=== PATIENT | female | born 2000 | race Hispanic/Latino ===

== ENCOUNTER 2024-04-06 13:14 | Inpatient (IN) | payer OTHER, SELFPAY ==
[2024-04-06 15:12] LABS: #Basophils 0.03 10x3/uL (0.0-0.2); #Eosinophils 0.18 10x3/uL (0.0-0.5); #Monocytes 0.71 10x3/uL (0.0-1.1); #Neutrophils 7.85 10x3/uL (1.5-8.4); %Basophils 0.2 % (0.0-2.0); %Eosinophils 1.5 % (0.0-6.0); %Lymphocytes 27.5 % (18.0-47.0); %Monocytes 5.8 % (0.0-10.0); %Neutrophils 64.8 % (40.0-75.0); Hematocrit 36.1 % (34.9-44.5); Hemoglobin 12.3 g/dL (12.0-15.5); Mean Corpuscular HGB CONC 34.1 g/dL (32.0-36.0); Mean Corpuscular Hemoglobin 28.1 pg (27.0-33.0); Mean Corpuscular Volume 82.4 fL (81.6-98.3); Mean Platelet Volume 10.8 fL (7.4-10.4); Platelet Count 218 10x3/uL (150-450); RBC Distribution Width 11.9 % (11.5-14.5); Red Blood Cell (RBC) Count 4.38 10x6/uL (3.90-5.03); White Blood Cell (WBC) Count 12.1 10x3/uL (3.5-10.5)
[2024-04-06 15:31] LABS: ALT (SGPT) 56 U/L (8-55); AST (SGOT) 37 U/L (5-34); Albumin 3.4 g/dL (3.5-5.0); Alkaline Phosphatase 86 U/L (40-110); Anion Gap 14 mmol/L (10-20); BUN (Urea Nitrogen) 11 mg/dL (7.0-18.7); Bilirubin, Total 0.4 mg/dL (0.2-1.2); Calc. Creatinine Clearance 0 mL/min (70-130); Calcium 9.1 mg/dL (7.8-10.44); Carbon Dioxide 26 mmol/L (22-29); Chloride 101 mmol/L (98-107); Estimated GFR 126; Globulin 3.9 g/dL (2.4-3.5); Glucose 316 mg/dL (70-105); Lipase 12 U/L (8-78); Potassium 3.5 mmol/L (3.5-5.1); Protein, Total 7.3 g/dL (6.0-8.3); Sodium 137 mmol/L (136-145)
[2024-04-06 18:14] LABS: Bilirubin Neg (Negative); Blood, Urine 250 (Negative); Clarity Clear (Clear); Glucose, Urine (Dipstick) >=1000 mg/dL (Negative); Ketone, Urine Negative (Negative); Leukocyte Negative (Negative); Nitrite Negative (Negative); Protein, Urine (Dipstick) Negative (Neg-Trace); Specific Gravity, Urine 1.015 (1.005-1.030); pH, Urine 6.5 (5.0-9.0)
[2024-04-06 18:32] LABS: Bacteria/HPF Rare-Few HPF (None Seen); CAUTI Indications for Culture Pelvic or flank pain; Mucous/LPF Rare LPF (<2+); Squamous Epithelial None Seen HPF (0-3); WBC/HPF 0-3 HPF (0-3)
[2024-04-06] MEDS ORDERED: Piperacillin/Tazobactam 4.5 GM VIAL ONE (18:32)
[2024-04-06 18:33] LABS: Urine Culture Reflex No No
[2024-04-06] MEDS ORDERED: Ibuprofen 200 MG TAB PO PRN (19:58)
[2024-04-06] MEDS ORDERED: Dextrose 5% in Water 1,000 ML IV PRN (20:06)
[2024-04-06] MEDS ORDERED: Dextrose 50% Abboject 50 ML SYRINGE SLOW IVP PRN (20:06)
[2024-04-06] MEDS ORDERED: Glucagon 1 MG/ML KIT IM PRN (20:06)
[2024-04-06] MEDS ORDERED: Piperacillin/Tazobactam 3.375 GM in Sodium Chloride 0.9% 100 ML IVPB SCH (22:00)
[2024-04-06] MEDS: Piperacillin/Tazobactam 3.375 GM in Sodium Chloride 0.9% 100 ML IVPB SCH (22:39)
[2024-04-06] MEDS: Insulin Lispro 100 UNIT/ML 10 ML VIAL SC PRN (23:02)
[2024-04-06] MEDS: Acetaminophen 325 MG TAB PO PRN (23:15)
[2024-04-07 02:13] VITALS: BMI 26.0
[2024-04-07 05:09] LABS: #Basophils 0.03 10x3/uL (0.0-0.2); #Eosinophils 0.18 10x3/uL (0.0-0.5); #Monocytes 0.68 10x3/uL (0.0-1.1); #Neutrophils 6.14 10x3/uL (1.5-8.4); %Basophils 0.3 % (0.0-2.0); %Eosinophils 1.7 % (0.0-6.0); %Lymphocytes 33.4 % (18.0-47.0); %Monocytes 6.4 % (0.0-10.0); %Neutrophils 57.9 % (40.0-75.0); Hematocrit 36.4 % (34.9-44.5); Hemoglobin 11.9 g/dL (12.0-15.5); Mean Corpuscular HGB CONC 32.7 g/dL (32.0-36.0); Mean Corpuscular Hemoglobin 27.3 pg (27.0-33.0); Mean Corpuscular Volume 83.5 fL (81.6-98.3); Mean Platelet Volume 11.2 fL (7.4-10.4); Platelet Count 196 10x3/uL (150-450); RBC Distribution Width 11.9 % (11.5-14.5); Red Blood Cell (RBC) Count 4.36 10x6/uL (3.90-5.03); White Blood Cell (WBC) Count 10.6 10x3/uL (3.5-10.5)
[2024-04-07] MEDS: Lactated Ringer's 1,000 ML IV SCH (08:15)
[2024-04-07] MEDS: FLU (Fluarix Triv) TS24-25(6MOS UP)/PF 45 MCG/0.5 ML Syringe IM ONE (08:15)
[2024-04-07] MEDS: Insulin Lispro 100 UNIT/ML 10 ML VIAL SC PRN (10:59)
[2024-04-07] MEDS ORDERED: Methylergonovine 0.2 MG/ML VIAL ONE (14:51)
[2024-04-07] MEDS ORDERED: Tranexamic Acid 1,000 MG/10 ML VIAL ONE (14:51)
[2024-04-07] MEDS ORDERED: PROPOFOL 20 ML ONE (14:52)
[2024-04-07] MEDS ORDERED: fentaNYL 50 mcg/mL 1 mL Vial ONE ×2 (14:52→15:10)
[2024-04-07] MEDS ORDERED: Ondansetron PF 4 MG/2 ML Vial ONE (15:15)
[2024-04-07] MEDS ORDERED: Dexamethasone 4 mg/ml Vial ONE (15:15)
[2024-04-07] MEDS ORDERED: PHENYLEPHRINE-NS 100 MCG/ML 10 ML SYRINGE ONE (15:23)
[2024-04-07] MEDS ORDERED: Misoprostol 200 MCG TAB ONE (15:25)
[2024-04-07] MEDS ORDERED: Meperidine HCl/PF 25 MG (1 mL) VIAL ONE (15:50)
[2024-04-07] MEDS: Ondansetron ODT 4 MG TAB PO PRN (18:03)
[2024-04-07] MEDS ORDERED: Ondansetron PF 4 MG/2 ML Vial IVP PRN (18:32)
[2024-04-07] MEDS: Lactated Ringer's 500 ML IV SCH (19:05)
[2024-04-07 20:15] VITALS: BP 113/70; TEMP 98.3
[2024-04-07] MEDS: Doxycycline 100 MG CAP PO SCH (21:02)
[2024-04-07] MEDS: metroNIDAZOLE 500 MG TAB PO SCH (21:02)
[2024-04-07] MEDS: Promethazine HCl 12.5 MG, Admixture Fee 1 EACH in Sodium Chloride 0.9% 50 ML IVPB SCH (21:02)
== END 2024-04-07 21:15 | disposition home or self-care (01) | DRG 770 ==
LOC: CSHERS 13:14 → CSHPP 20:40
PROVIDERS: ADMIT Family Medicine; ATTEND Family Medicine
PROC: 10D17ZZ Extraction of Products of Conception, Retained, Via Natural or Artificial Opening (ICD-10-PCS; principal; 2024-04-07)
DX: O03.4 Incomplete spontaneous abortion without complication (principal); Z79.4 Long term (current) use of insulin; Z79.899 Other long term (current) drug therapy; Z82.49 Family history of ischemic heart disease and other diseases of the circulatory system
CPT/HCPCS: 36415; 36416; 76856; 80053; 81001; 83690; 84702; 85025; 86850; 86900; 86901; 88305; 96365; J1100; J1815; J2175; J2210; J2405; J2543; J2704; J3010; J7120; Q0162